=== PATIENT | female | born 1965 ===

== ENCOUNTER 2021-09-22 14:00 | Outpatient (RCR) | payer OTHER ==
[2021-09-12 16:24] VITALS: BP 119/63; PULSE 82; TEMP 99.1
[2021-09-13 16:31] VITALS: BP 126/73; PULSE 75; TEMP 98
[~2021-09-22] VITALS: Ht 175.3 cm; Wt 103.2 kg
[~2021-09-22 14:00] MED LIST: CRESTOR40 MG PO; FLONASEALLERGY NS; GLUCOPHAGE1000 MG PO; HCTZ 25MG TAB25 MG PO; K-TAB10 PO; NORVASC 10MG10 MG PO; PREMPHASE1 TAB PO; PROAIR HFA0.09 MG/AC IH; ROCALTROL0.5 MCG PO; SYNTHROID0.125 MG/T PO; TUMS EXTRA STR750 MG PO; VITAMIN D31000 I1 PO
[2021-09-27 16:43] LABS: THYROGLOBULIN AB SCREEN <1.8 IU/mL (<1.8); THYROGLOBULIN TUMOR MARKER 0.8 ng/mL (())
== END 2021-10-02 | disposition home or self-care (01) ==
LOC: COL.RAD
PROVIDERS: Otolaryngology
DX: C73 Malignant neoplasm of thyroid gland (principal); Z98.890 Other specified postprocedural states
CPT/HCPCS: A9517; J3240